=== PATIENT | male | born 1970 | race Caucasian/White ===

== ENCOUNTER 2021-12-10 13:03 | Outpatient (CLI) | payer MEDICARE, MEDICAID, SELFPAY | END 2021-12-10 13:04 | disposition home or self-care (01) | LOC: ANHBWCAUD 13:05 | DX: H91.93 Unspecified hearing loss, bilateral (principal) | CPT/HCPCS: 92557 ==

== ENCOUNTER 2023-10-06 08:17 | Outpatient (CLI) | payer MEDICARE, MEDICAID, SELFPAY | END 2023-10-06 08:18 | disposition home or self-care (01) | DX: H90.3 Sensorineural hearing loss, bilateral (principal) | CPT/HCPCS: 92557; 92567 ==